=== PATIENT | female | born 1980 | race Caucasian/White ===

== ENCOUNTER 2017-08-19 21:48 | Observation (INO) | payer OTHER ==
[~2017-08-19 21:48] MED LIST: ISOVUE-370 76%-LOCM 1 ML ONE
[2017-08-19 22:11] LABS: #Basophils 0.1 thou/uL (0.0-0.2); #Eosinphils 0.2 thou/uL (0.0-0.7); #Monocytes 0.6 thou/uL (0.11-0.59); #Neutrophils 6.5 thou/uL (1.40-6.50); %Basophils 0.6 % (0.0-1.0); %Lymphocytes 21.3 % (21.0-51.0); %Monocytes 6.7 % (0.0-10.0); %Neutrophils 69.4 % (42.0-75.0); Mean Corpuscular HGB CONC 33.8 g/dL (32.0-36.0); Mean Corpuscular Hemoglobin 30.8 pg (27.0-31.0); Mean Corpuscular Volume 91.2 fl (81.0-99.0); Mean Platelet Volume 7.8 fL (7.4-10.4); Platelet Count 282 thou/uL (130-400); RBC Distribution Width 12.2 % (11.5-14.5); Red Blood Cell (RBC) Count 3.88 mill/uL (4.20-5.40); White Blood Cell (WBC) Count 9.4 thou/uL (4.8-10.8)
[2017-08-19 22:16] LABS: Bilirubin Negative (Negative); Blood, Urine Negative (Negative); Clarity CLEAR (Clear); Glucose, Urine (Dipstick) Negative (Negative); Leukocyte Negative (Negative); Nitrite Negative (Negative); Protein, Urine (Dipstick) Negative (Neg-Trace); Specific Gravity, Urine 1.012 (1.002-1.036); pH, Urine 6.5 (5.0-9.0)
[2017-08-19 22:19] LABS: Pregnancy Test - Urine (BHCG) Negative (Negative); Pregu Control Background? CLEAR/WHITE (CLR/WHITE); Pregu Control Bar Appear? YES (CONTROL BAR); Specific Gravity 1.012 (1.002-1.036)
[2017-08-19 22:33] LABS: ALT (SGPT) 18 U/L (8-55); AST (SGOT) 15 U/L (5-34); Albumin 4.3 g/dL (3.5-5.0); Alkaline Phosphatase 64 U/L (40-150); Anion Gap 13 mmol/L (10-20); BUN (Urea Nitrogen) 14 mg/dL (7.0-18.7); Bilirubin, Total 0.3 mg/dL (0.2-1.2); Calc. Creatinine Clearance 0 mL/min (70-130); Calcium 9.5 mg/dL (7.8-10.44); Carbon Dioxide 32 mmol/L (22-29); Chloride 99 mmol/L (98-107); Estimated GFR-MDRD 63; Globulin 3.3 g/dL (2.4-3.5); Glucose 96 mg/dL (70-105); Lipase 32 U/L (8-78); Protein, Total 7.6 g/dL (6.0-8.3); Sodium 141 mmol/L (136-145)
[2017-08-19 22:44] LABS: Potassium 2.9 mmol/L (3.5-5.1)
[2017-08-19] MEDS ORDERED: Potassium Chloride 20 MEQ/100 ML PREMIX BAG ONE (23:19)
[2017-08-20] MEDS ORDERED: Piperacillin/Tazobactam 4.5 GM VIAL ONE (04:29)
[2017-08-20] MEDS ORDERED: Ondansetron ODT 4 MG TAB ONE (04:54)
[2017-08-20 06:18] VITALS: BMI 33.3
[2017-08-20] MEDS: Sodium Chloride 0.9% 1,000 ML IV SCH ×2 (06:57→17:17)
[2017-08-20] MEDS ORDERED: Potassium Chloride 20 MEQ in Premix Bag 1 BAG IVPB SCH (07:30)
--- NOTE | 2017-08-20 07:39 | CT ---
CT OF ABDOMEN AND PELVIS: Date: 08/19/17 COMPARISON: None. HISTORY: Right upper quadrant pain, right lower quadrant pain. TECHNIQUE: Serial axial CT imaging at 5 mm intervals from lung bases through pubic symphysis with IV contrast. C oronal reformatted imaging obtained. FINDINGS: The lack of oral contrast limits assessment of the bowel. Wedge-shaped density in the right middle lo be suggests volume loss. No free intraperitoneal air is seen. The liver, spleen, gallbladder, pancreas, adrenal glands, and kidneys demonstrate no acute findings. No focal area of bowel inflammatory change or evidence of bowel obstruction is seen. There is no discrete inflammatory change seen in the right lower quadrant. The appendix cannot be dis cretely visualized on this examination, however. The vascular structures appear patent. There is no lymphadenopathy seen. No acute osseous abnormality is noted. IMPRESSION: No free intraperitoneal air or evidence of bowel obstruction. The appendix cannot be discretely visualized on this exam. While there is no significant inflammatory change within the right lower quadrant, if there is clinical concern for appendicitis, follow-up iam ging with oral and rectal contrast suggested. POS: [facility]
[2017-08-20 09:07] LABS: Anion Gap 12 mmol/L (10-20); BUN (Urea Nitrogen) 8 mg/dL (7.0-18.7); Calc. Creatinine Clearance 141 mL/min (70-130); Calcium 8.4 mg/dL (7.8-10.44); Carbon Dioxide 27 mmol/L (22-29); Estimated GFR-MDRD 77; Glucose 83 mg/dL (70-105); Magnesium 2.3 mg/dL (1.6-2.6); Potassium 3.7 mmol/L (3.5-5.1); Sodium 142 mmol/L (136-145)
[2017-08-20 09:12] LABS: Chloride 107 mmol/L (98-107)
--- NOTE | 2017-08-20 09:14 | HP ---
DATE OF ADMISSION: 08/20/2017 HISTORY OF PRESENT ILLNESS: Ms. Fitzgerald is a 36-year-old woman, an inmate of a [employer] [facility], who presented to Emergency Department with insidious onset infraumbilical midline abdominal p ain, which started 2 days prior to presentation. Pain had localized to the right lower quadrant and persisted since yesterday. Pain was associated with one bout of nausea, but no emesis. Patient michaela ed any diarrhea, fever or chills. PAST MEDICAL HISTORY: Pertinent for hypothyroidism and essential hypertension. PAST SURGICAL HISTORY: Pertinent for bilateral tubal ligation. SOCIAL HISTORY: She is an inmate of a [employer] [facility]. She denies any cigarette smoki ng, ethanol or illicit drug abuse. The patient was a registered nurse prior to incarceration. FAMILY HISTORY: Notable for diabetes mellitus in her father and a maternal grandmother who from complications of breast carcinoma and systemic lupus erythematosus. CURRENT MEDICATIONS: Includes levothyroxine 100 mcg p.o. daily and some antihypertensives she does r ecall the specifics. ALLERGIES: Patient denies any known drug allergies. REVIEW OF SYSTEMS: A 10-point review of systems is essentially unremarkable except for as stated in past medical history and chief complaint. PHYSICAL EXAMINATION: GENERAL: This reveals a 36-year-old normally developed woman, who is otherwise coherent and interact severo and appears stated age. The patient is alert and oriented x3. She appears to be in no acute dis tress at the time of my evaluation. VITAL SIGNS: Includes blood pressure 114/77, pulse 77, respiratory rate 16, temperature is 97.7 degr ees Fahrenheit, oxygen saturation is 97% on room air. HEENT EXAMINATION: Reveals normocephalic and atraumatic. Pupils are equal, round, and reactive to l ight and accommodation. Extraocular muscles are intact bilaterally. She has no scleral icterus pres ent. HEART: Reveals regular rate and rhythm. No murmurs or gallops auscultated. LUNGS: Clear to auscultation bilaterally. Her breathing regular and unlabored. ABDOMEN: Soft with right lower quadrant tenderness at McBurney's. She has a positive Rovsing sign. Liver and spleen are, otherwise, nonpalpable below costal margins. EXTREMITIES: There is 2+ radial and pedal pulses bilaterally. No ankle edema is present. NEUROLOGICAL EXAMINATION: Reveals no focal deficits present. PERTINENT LABORATORY FINDINGS: Today includes CBC with 9400 white blood cells, hemoglobin and hemato crit 12.0 and 35.4 respectively. Platelet count is 282,000. Metabolic profile: Sodium 141, potassi um 2.9, chloride is 99, bicarbonate 32, BUN 14, creatinine 0.99, glucose 96, total bilirubin 0.3, AST and ALT normal at 15 and 18 respectively. Serum lipase is also normal at 32. Urinalysis was essent ially unremarkable. I have personally reviewed the CT scan of the abdomen and pelvis, which reveals dilated appendix with periappendiceal fat stranding, no pneumoperitoneum or significant free fluid is noted. IMPRESSION: Acute appendicitis with localized peritonitis. PLAN: Laparoscopic appendectomy. I have advised the patient of the above findings and plan. I have also informed her of the risks and benefits of the proposed surgery. Risks include, but not limited to bleeding, infection, injury to bowel or surrounding structures. This information was given to th e patient in the presence of her nurse. She indicated understanding of the information given. I ans wered all her questions. The patient has granted consent for this admission and surgical interventio n.
[2017-08-20] MEDS ORDERED: Fentanyl 100 MCG/2 ML VIAL ONE ×3 (09:41→12:07)
[2017-08-20] MEDS ORDERED: Promethazine HCl 25 MG/ML VIAL ONE (09:42)
[2017-08-20] MEDS ORDERED: HYDROmorphone 0.5 MG/0.5 ML SYRINGE ONE (09:42)
[2017-08-20] MEDS ORDERED: Midazolam HCl 2 mg/2 ml Vial ONE (09:43)
[2017-08-20] MEDS ORDERED: Bupivacaine/Epinephrine 0.25% 30 ML VIAL ONE (09:50)
[2017-08-20] MEDS ORDERED: Promethazine HCl 25 MG/ML VIAL IM PRN (11:22)
[2017-08-20] MEDS ORDERED: Dextrose 5% in Water 1,000 ML IV PRN (11:22)
[2017-08-20] MEDS ORDERED: Ondansetron HCl/PF 4 MG/2 ML Vial IVP PRN (11:22)
[2017-08-20] MEDS ORDERED: hydrALAZINE 20 MG/ML VIAL SLOW IVP PRN (11:22)
[2017-08-20] MEDS ORDERED: Dextrose 50% Abboject 50 ML SYRINGE SLOW IVP PRN (11:22)
[2017-08-20] MEDS ORDERED: Iopamidol 370 76% 50 ML VIAL FS ONE (11:32)
[2017-08-20] MEDS ORDERED: Ondansetron HCl/PF 4 MG/2 ML Vial ONE ×2 (11:54→12:01)
[2017-08-20] MEDS ORDERED: Piperacillin/Tazobactam 4.5 GM in Sodium Chloride 0.9% 100 ML IVPB SCH (12:00)
[2017-08-20] MEDS ORDERED: PROPOFOL 200 MG/20 ML VIAL ONE (12:01)
[2017-08-20] MEDS ORDERED: Glycopyrrolate 0.2 MG/ML 5 ML SYRINGE ONE (12:01)
[2017-08-20] MEDS ORDERED: Succinylcholine Chloride 20 MG/ML 10 ml SYRINGE FS ONE (12:01)
[2017-08-20] MEDS ORDERED: Lidocaine 1% PF 5 ML VIAL ONE (12:01)
[2017-08-20] MEDS ORDERED: Ketorolac Tromethamine 30 MG/ML VIAL ONE ×2 (12:01)
[2017-08-20] MEDS ORDERED: Dexamethasone 20 MG/5 ML VIAL ONE (12:01)
--- NOTE | 2017-08-20 12:05 | CT ---
PRELIMINARY REPORT/[facility]/EMERGENCY AFTER HOURS PROCEDURE: Addendum created by Huyen Dennis MD on 08/20/2017 4:17 AM Central Time ([place] & [place]) THIS REPORT CO NTAINS FINDINGS THAT MAY BE CRITICAL TO PATIENT CARE. The findings were verbally communicated via tel ephone conference with PET CARE TECHNICIANMelanie Sánchez by Dr. Dennis on 08/20/2017 4:14 AM CDT. The results were ackn owledged and understood. Initial Report created on 08/20/2017 4:11 AM Central Time ([place] & [place]) EXAM: CT Abdomen and Pelvis With Intravenous Contrast CLINICAL HISTORY: 36 years old, female; Pain; Abdominal pain; Localized; Right; Patient HX: Er 18; 36f presents to the ed for evaluation of rlq and ruq pain since . Reports pain became worse this morning at 0200. Reports taking 800mg motrin several times today with moderate relief. Reports pain has moved to ruq today. ; Additional info: *pt had a scan with iv contrast only* *repeat scan was done with oral and r ectal contrast TECHNIQUE: Axial computed tomography images of the abdomen and pelvis with intravenous contrast. COMPARISON: No relevant prior studies available. FINDINGS: Lung bases: No acute findings. No mass. No consolidation. ABDOMEN: Liver: No acute findings. No mass. Gallbladder and bile ducts: No acute findings. No calcified stones. No ductal dilation. Pancreas: No acute findings. No mass. No ductal dilation. Spleen: No acute findings. No splenomegaly. Adrenals: No acute findings. No mass. Kidneys and ureters: No acute findings. No solid mass. No hydronephrosis. Stomach and bowel: There is extensive colonic fecal retention. No obstruction. No mucosal thickening. PELVIS: Appendix: Retrocecal. Dilated up to 18 mm, fluid filled, with adjacent stranding (coronal 47-60). Bladder: No acute findings. No mass. Reproductive: Unremarkable as visualized. ABDOMEN and PELVIS: Intraperitoneal space: No acute findings. No free air. No significant fluid collection. Bones/joints: No acute fracture. No dislocation. Soft tissues: No acute findings. Vasculature: No acute findings. No abdominal aortic aneurysm. Lymph nodes: No acute findings. No enlarged lymph nodes. IMPRESSION: Acute, uncomplicated, appendicitis. Dense fecal retention. Thank you for allowing us to participate in the care of your patient. Dictated and Authenticated by: Huyen Dennis MD 08/20/2017 4:11 AM Central Time ([place] & [place]) FINAL REPORT EMERGENCY AFTER HOURS CT OF ABDOMEN AND PELVIS PERFORMED WITHOUT CONTRAST ENHANCEMENT: Date: 08/20/17 COMPARISON: Prior day's CT study. HISTORY: Right lower and right upper quadrant pain, which is becoming worse. FINDINGS: The lung bases are clear. The liver and spleen show no focal abnormalities. The spleen measures approximately 12.8 cm. Pancreas and gallbladder regions are unremarkable. Right and left adrenal glands are normal. Right and left kidneys are normal in size. There is still c ontrast within the collecting systems related to the previous CT examination. There is no significant periaortic or mesenteric adenopathy. There is a moderate amount of stool present within the colon. S tool is more pronounced on the right side. CT of pelvis was performed without contrast enhancement. There is no free fluid, adenopathy, or mass. The appendix is difficult to visualize, but there appears to be some edema change at what appears to be the base of the appendix and I see what I believe to be a slightly dilated appendix. It is diffic ult to assess for fat stranding, although there is suggestion of some indistinctness to the fat in th is region. IMPRESSION: Mildly dilated appendix with features that would suggest early changes of appendicitis. This report is in agreement with the preliminary report issued by [facility]. POS: [facility]
[2017-08-20] MEDS: Acetaminophen 500 MG TAB PO SCH ×3 (14:14→23:40)
[2017-08-20] MEDS: traMADol HCl 50 MG TAB PO PRN ×2 (14:19→21:32)
[2017-08-20] MEDS: Ibuprofen 800 MG TAB PO PRN (16:37)
[2017-08-20] MEDS ORDERED: Enoxaparin Sodium 40 MG/0.4 ML SYRINGE SC SCH (21:00)
[2017-08-20] MEDS: Famotidine/PF 20 mg/2ml Vial SLOW IVP SCH (21:30)
[2017-08-20] MEDS: Famotidine 20 MG TAB PO SCH (21:33)
[2017-08-21] MEDS: Ibuprofen 800 MG TAB PO PRN ×2 (00:45→09:48)
[2017-08-21] MEDS: traMADol HCl 50 MG TAB PO PRN ×2 (03:38→13:00)
[2017-08-21] MEDS: Acetaminophen 500 MG TAB PO SCH ×2 (05:51→12:57)
[2017-08-21 08:48] VITALS: TEMP 98.1
[2017-08-21] MEDS: Famotidine 20 MG TAB PO SCH (09:43)
[2017-08-21] MEDS: Famotidine/PF 20 mg/2ml Vial SLOW IVP SCH (09:44)
[2017-08-21 12:17] VITALS: BP 101/56
--- NOTE | 2017-08-21 13:16 | DIS ---
DATE OF ADMISSION: 08/19/2017 DATE OF DISCHARGE: 08/21/2017 ADMITTING PHYSICIAN: Dr. Turner Knight DISCHARGING PHYSICIAN: Dr. Turner Knight REASON FOR HOSPITALIZATION: Abdominal pain. HOSPITAL DIAGNOSIS: Acute appendicitis. PROCEDURES: Laparoscopic appendectomy. DATE OF PROCEDURE 08/20/2017. SURGEON: Dr. Turner Knight DISPOSITION: [facility]. DISCHARGE CONDITION: Good. BRIEF HISTORY OF HOSPITALIZATION: Ms. Fitzgerald is a 36-year-old female who presented to [place] [facility] with abdominal pain. Workup in the ED was consistent with acute appendicitis. She was admitted to the hospital by the Trauma Services. She was taken to the OR by Dr. Knight for a laparoscopic appendectomy. On postoperative day #1, she had return of bowel function. She was tolerating regular diet. She was ambulating without difficulty. Pain was well controlled. Bowel function had returned. She was deemed safe for discharge back to the [facility]. She is to follow up with Dr. Knight in 2 weeks. She may resume a regular diet. She may take a shower. No submerging in bathtub or pool of water for 2 weeks until the incisions are completely healed. She, as well as [facility] staff, were given discharge instructions, followup information strict return precautions . The patient was seen and examined with Dr. Knight who agrees with the assessment and plan. [facility]
--- NOTE | 2017-08-22 13:09 | OP ---
DATE OF OPERATION: 08/20/2017 PREOPERATIVE DIAGNOSIS: Acute appendicitis. POSTOPERATIVE DIAGNOSIS: Acute appendicitis. PROCEDURES PERFORMED: Laparoscopic appendectomy. SURGEON: Turner Knight D.O. ANESTHESIA: General endotracheal. ESTIMATED BLOOD LOSS: Negligible. COUNTS: Sponge and instrument count certified as correct x2. COMPLICATIONS: None apparent to operation. INDICATIONS FOR PROCEDURE: A 37-year-old woman presented with abdominal pain. Clinical examination was consistent with acute appendicitis for which the patient was brought to the operating room for an appendectomy. DESCRIPTION OF PROCEDURE: Informed consent obtained from the patient who was brought to the operatin g room and placed in supine position. Following general anesthesia, abdomen is sterilely prepped and draped in usual fashion. The skin below the umbilicus was infiltrated with 0.25% Marcaine with epin ephrine. A small curvilinear infraumbilical incision is made using an 11 scalpel. Umbilical stalk g rasped with Slime's and elevated. Veress needle inserted through the incision and placed in the per itoneal cavity through which the abdomen was insufflated with 3 liters of CO2 gas. Veress needle was removed and a 5 mm trocar introduced using the Visiport under laparoscopy. Laparoscopy confirmed pr oper placement of the port. Under direct laparoscopy, 5 mm suprapubic and a 12 mm left lower quadran t ports were placed after the overlying skin were infiltrated with 0.25% Marcaine with epinephrine an d appropriate incisions were made. The patient was placed in a Trendelenburg position, rotated to he r left. I then introduced a Prestige grasper to using this to take down omental adhesions to reveal a dilated appendix in the usual anatomic location. Endo [place] forceps introduced through the supra pubic port site grasping the appendix which was elevated. I used a [place] dissector to create a re nt through the mesoappendix at the base. Endo-JENNY was then used to divide the appendix at the append ical cecal junction. Using a white load of the Endo-JENNY, the mesoappendix was divided with good hemo stasis. Appendix is delivered out of the abdominal cavity using an EndoCatch. Operative site was in spected for good hemostasis. Finding no other pathology, laparoscopy was terminated. Fascia of the left lower quadrant port was closed using 0 Vicryl suture and Endo closure device under laparoscopy. Abdomen was desufflated. All ports and instruments removed and accounted for. Skin incisions were closed using 4-0 Monocryl suture in subcuticular fashion. Dermabond was applied over incisional clos ure. The patient tolerated this procedure without any apparent complication and was returned to [facility] room in satisfactory condition.
== END 2017-08-21 13:05 ==
LOC: ERS 21:48 → SURG A 08-20 05:24 → INTOOBSV 08-20 05:24
PROVIDERS: ADMIT Surgery; ATTEND Surgery
PROC: 0DTJ4ZZ Resection of Appendix, Percutaneous Endoscopic Approach (ICD-10-PCS; principal; 2017-08-20)
DX: K35.80 Unspecified acute appendicitis (principal); E03.9 Hypothyroidism, unspecified; I10 Essential (primary) hypertension; Z79.899 Other long term (current) drug therapy
CPT/HCPCS: 36415; 74176; 74177; 80048; 80053; 81003; 81025; 83690; 83735; 84100; 85025; 86850; 86900; 86901; 88304; 96361; 96365; 96366; 96372; 96375; A4216; G0378; J1100; J1170; J1650; J1885; J2001; J2250; J2270; J2405; J2543; J2550; J2704; J3010; J3480; J7050; Q0162